=== PATIENT | male | born 1945 | race Caucasian/White ===

== ENCOUNTER 2022-05-08 13:53 | Outpatient (RCR) | payer MEDICARE, BC, SELFPAY | END 2022-10-05 15:54 | disposition home or self-care (01) | PROVIDERS: PCP Orthopaedic Surgery; Visit Provider Orthopaedic Surgery | DX: M25.561 Pain in right knee (principal); M25.562 Pain in left knee; Z51.89 Encounter for other specified aftercare; R26.89 Other abnormalities of gait and mobility; M22.2X2 Patellofemoral disorders, left knee; M22.2X1 Patellofemoral disorders, right knee | CPT/HCPCS: 97110; 97162 ==

== ENCOUNTER 2023-09-13 13:00 | Outpatient (RCR) | payer MEDICARE, SELFPAY | END 2023-10-10 14:40 | disposition home or self-care (01) | PROVIDERS: PCP Orthopaedic Surgery; Visit Provider Orthopaedic Surgery | DX: Z96.652 Presence of left artificial knee joint (principal); Z51.89 Encounter for other specified aftercare | CPT/HCPCS: 97110; 97116; 97140; 97161; 97164 ==